=== PATIENT | female | born 1965 | race Caucasian/White ===

== ENCOUNTER → 2019-07-27 | Day surgery (SDC) | payer OTHER ==
[~2019-07-27] MED LIST: ESTRADIOL1 MG PO; FENTANYL CITRATE/PF 100MCG/2 ML INJ ONE; HYOSCYAMINE 0.125 MG TAB ONE; PROPOFOL IV EMULSION 10 MG/ML 50 ML VIAL ONE
[2019-07-27 12:50] VITALS: BP 107/76
--- NOTE | 2019-07-27 18:53 | Operative Report ---
DATE OF PROCEDURE: 07/27/2019 SURGEON: Zelalem Key MD PROCEDURE: Colonoscopy with polypectomy. REFERRING PHYSICIAN: Dr. Ian Lilly. INDICATION FOR COLONOSCOPY: Surveillance colonoscopy, personal history of colon polyps. MEDICATIONS: The patient was done under MAC, please see anesthesiologist's note. PROCEDURE IN DETAIL: With the patient in left lateral decubitus position, flexible fiberoptic Olympus colonoscope was inserted into the rectum with ease and advanced all the way to the cecum. A minute polyp was noted in the cecum that was removed per the cold biopsy forceps. The ascending and the transverse appeared to be within normal limits. Polyp was hot biopsied in the descending colon. The rest of the descending, sigmoid, and rectum appeared to be within normal limits. The scope was then retroflexed into the distal rectum and small internal hemorrhoids were noted none of which was actively bleeding. The scope was then straightened out and it was subsequently withdrawn and the patient tolerated the procedure well. IMPRESSION: 1. Cecal polyp removed per cold biopsy forceps. 2. Descending colon polyp removed per hot biopsy forceps. 3. Internal hemorrhoids none actively bleeding. PLAN: Followup histology. Initiate high-fiber, low-fat diet. Initiate high-fiber supplement. The patient might benefit from a followup colonoscopy in 5 years. Zelalem Key MD [facility] [place] /[id number] cc: Ian Lilly DO
== END | disposition home or self-care (01) ==
LOC: OR 09:38 → EDSEX 11:30
PROVIDERS: ATTEND Internal Medicine Gastroenterology
DX: Z09 Encounter for follow-up examination after completed treatment for conditions other than malignant neoplasm (principal); D12.4 Benign neoplasm of descending colon; K64.8 Other hemorrhoids; Z01.810 Encounter for preprocedural cardiovascular examination
CPT/HCPCS: 45380; 45384; 93005; J2704; J3010; 45378